=== PATIENT | male | born 1995 | race Caucasian/White ===

== ENCOUNTER 2021-06-11 13:38 | Inpatient (IN) | payer OTHER ==
[~2021-06-11] VITALS: Ht 185.4 cm; Wt 100.0 kg
[2021-06-11 14:56] LABS: COVID AG,FIA SOURCE NASOPHARYNGEAL
[2021-06-11] MEDS ORDERED: ONDANSETRON HCL 4 MG/2 ML VIAL IVP PRN (15:45)
[2021-06-11] MEDS ORDERED: ACETAMINOPHEN 325 MG TABLET PO PRN (15:45)
[2021-06-11] MEDS ORDERED: ALBUTEROL SULFATE/IPRATROPIUM 100-20 MCG/SPRAY 4 GM INHALER IH PRN (15:45)
[2021-06-11] MEDS ORDERED: DOCUSATE SODIUM 100 MG CAPSULE PO PRN (15:45)
[2021-06-11] MEDS ORDERED: BISACODYL 10 MG RECTAL RECTAL SUPPOSITORY PR PRN (15:45)
[2021-06-11] MEDS ORDERED: MAGNESIUM HYDROXIDE SUSPENSION 30 ML UDCUP PO PRN (15:45)
[2021-06-11] MEDS: HEPARIN SODIUM,PORCINE 5,000 UNITS/ML VIAL SQ SCH ×2 (16:00→23:44)
[2021-06-11 18:19] LABS: C-REACTIVE PROTEIN QUANT 1.76 mg/dL (0.00-0.30); FERRITIN 464 ng/mL (26-388)
[2021-06-11 20:18] VITALS: BP 142/90
[2021-06-11] MEDS: ZINC SULFATE 220 MG CAPSULE PO SCH (21:03)
[2021-06-11] MEDS: ASCORBIC ACID 500 MG TABLET PO SCH (21:03)
[2021-06-11] MEDS: FAMOTIDINE 10 MG/ML 2 ML VIAL IVP SCH (21:42)
[2021-06-11] MEDS: ACETAMINOPHEN 325 MG TABLET PO PRN (21:42)
[2021-06-11 23:41] VITALS: BP 145/79
[2021-06-12 01:41] LABS: APPEARANCE,URINE CLEAR (CLEAR); BILIRUBIN,URINE NEGATIVE (NEGATIVE); GLUCOSE, URINE (UA) NEGATIVE (NEGATIVE); KETONES,URINE 15 mg/dL (NEGATIVE); LEUKOCYTE ESTERASE ,URINE NEGATIVE (NEGATIVE); NITRATE,URINE NEGATIVE (NEGATIVE); OCCULT BLOOD,URINE NEGATIVE (NEGATIVE); PH,URINE 5.5 (5.0-8.0); PROTEIN,URINE POS 1+ (NEGATIVE)
[2021-06-12 02:01] LABS: BACTERIA,URINE Few /HPF (None Seen); MUCUS,URINE Few LPF (None Seen); RBC,URINE 0-2 /HPF (0-2); WBC,URINE 0-2 /HPF (0-5)
[2021-06-12 04:58] VITALS: BP 138/77
[2021-06-12] MEDS: ACETAMINOPHEN 325 MG TABLET PO PRN ×2 (04:58→21:32)
[2021-06-12 06:40] LABS: BASOPHILS % (AUTO) 0.3 % (0.0-2.0); EOSINOPHILS % (AUTO) 0 % (1.0-6.0); HEMATOCRIT 44.7 % (41-53); HEMOGLOBIN 15.3 g/dL (13.5-17.5); LYMPHOCYTES % (AUTO) 23.7 % (22.0-44.0); MEAN CORPUSCULAR HEMOGLOBIN 31.1 pg (26.0-34.0); MEAN CORPUSCULAR HGB CONC 34.2 G/dL (31.0-37.0); MEAN CORPUSCULAR VOLUME 91 fL (80-100); MONOCYTES # (AUTO) 0.4 K/uL (0.1-1.0); MONOCYTES % (AUTO) 10.4 % (2.0-9.0); NEUTROPHILS # (AUTO) 2.8 K/uL (1.8-7.7); NEUTROPHILS % (AUTO) 65.6 % (40.0-70.0); PLATELET COUNT (AUTO) 161 K/uL (150-450); RED BLOOD CELL COUNT(AUTO) 4.91 MIL/uL (4.50-5.90); RED CELL DISTRIBUTION WIDTH 12.9 % (11.5-14.5)
[2021-06-12 06:59] LABS: ALANINE AMINOTRANSFERASE 31 U/L (12-78); ALBUMIN 3.4 g/dL (3.4-5.0); ALKALINE PHOSPHATASE 49 U/L (46-116); ANION GAP 8 mmol/L (8-16); ASPARTATE AMINOTRANSFERASE 27 U/L (15-37); BILIRUBIN,TOTAL 0.3 mg/dL (0.1-1.0); CALCIUM, TOTAL 8.3 mg/dL (8.8-10.5); CARBON DIOXIDE 29 mmol/L (22-29); CHLORIDE 100 mmol/L (98-107); CREATININE 0.98 mg/dL (0.60-1.30); GLOMERULAR FILTR. RATE CALC > 60 mL/min (>60); GLUCOSE,RANDOM 92 mg/dL (70-110); POTASSIUM 4.3 mmol/L (3.5-5.1); SODIUM SERUM 137 mmol/L (136-145); UREA NITROGEN, BLOOD 12 mg/dL (7-18)
[2021-06-12 08:18] VITALS: BP 134/76
[2021-06-12] MEDS: HEPARIN SODIUM,PORCINE 5,000 UNITS/ML VIAL SQ SCH ×3 (08:52→23:58)
[2021-06-12] MEDS: ZINC SULFATE 220 MG CAPSULE PO SCH ×2 (08:52→21:31)
[2021-06-12] MEDS: FAMOTIDINE 10 MG/ML 2 ML VIAL IVP SCH ×2 (08:52→21:33)
[2021-06-12] MEDS: ASCORBIC ACID 500 MG TABLET PO SCH ×2 (08:53→21:31)
[2021-06-12] MEDS: SODIUM CHLORIDE 0.9% 1,000 ML IV SCH (13:06)
[2021-06-12 20:20] VITALS: BP 124/91
[2021-06-13 00:07] VITALS: BP 124/75
[2021-06-13] MEDS: SODIUM CHLORIDE 0.9% 1,000 ML IV SCH ×2 (03:13→17:24)
[2021-06-13 03:27] VITALS: BP 107/52
[2021-06-13] MEDS: ACETAMINOPHEN 325 MG TABLET PO PRN ×3 (03:29→21:56)
[2021-06-13 08:22] VITALS: BP 109/62
[2021-06-13] MEDS: FAMOTIDINE 10 MG/ML 2 ML VIAL IVP SCH ×2 (09:09→21:55)
[2021-06-13] MEDS: ASCORBIC ACID 500 MG TABLET PO SCH ×2 (09:10→21:55)
[2021-06-13] MEDS: ZINC SULFATE 220 MG CAPSULE PO SCH ×2 (09:10→21:56)
[2021-06-13] MEDS: HEPARIN SODIUM,PORCINE 5,000 UNITS/ML VIAL SQ SCH ×3 (09:10→23:57)
[2021-06-13 15:54] VITALS: BP 131/75
[2021-06-13 20:00] VITALS: BP 121/75
[2021-06-13] MEDS: BENZONATATE 100 MG CAPSULE PO PRN (21:56)
[2021-06-14 04:00] VITALS: BP 92/61
[2021-06-14] MEDS: BENZONATATE 100 MG CAPSULE PO PRN ×2 (04:33→22:54)
[2021-06-14] MEDS: SODIUM CHLORIDE 0.9% 1,000 ML IV SCH (04:33)
[2021-06-14] MEDS: ACETAMINOPHEN 325 MG TABLET PO PRN ×2 (04:38→22:54)
[2021-06-14 06:51] LABS: BASOPHILS % (AUTO) 0.5 % (0.0-2.0); EOSINOPHILS % (AUTO) 0 % (1.0-6.0); HEMATOCRIT 41.8 % (41-53); LYMPHOCYTES # (AUTO) 1.1 K/uL (1.0-4.8); LYMPHOCYTES % (AUTO) 30.4 % (22.0-44.0); MEAN CORPUSCULAR HEMOGLOBIN 30.5 pg (26.0-34.0); MEAN CORPUSCULAR HGB CONC 33.5 G/dL (31.0-37.0); MEAN CORPUSCULAR VOLUME 91 fL (80-100); MONOCYTES # (AUTO) 0.3 K/uL (0.1-1.0); NEUTROPHILS # (AUTO) 2.3 K/uL (1.8-7.7); NEUTROPHILS % (AUTO) 61.1 % (40.0-70.0); PLATELET COUNT (AUTO) 161 K/uL (150-450); RED BLOOD CELL COUNT(AUTO) 4.59 MIL/uL (4.50-5.90); RED CELL DISTRIBUTION WIDTH 12.9 % (11.5-14.5)
[2021-06-14 07:06] LABS: ANION GAP 10 mmol/L (8-16); CALCIUM, TOTAL 7.7 mg/dL (8.8-10.5); CARBON DIOXIDE 22 mmol/L (22-29); CHLORIDE 105 mmol/L (98-107); CREATININE 0.71 mg/dL (0.60-1.30); GLOMERULAR FILTR. RATE CALC > 60 mL/min (>60); GLUCOSE,RANDOM 88 mg/dL (70-110); POTASSIUM 3.8 mmol/L (3.5-5.1); SODIUM SERUM 137 mmol/L (136-145); UREA NITROGEN, BLOOD 6 mg/dL (7-18)
[2021-06-14 08:22] VITALS: BP 119/48
[2021-06-14] MEDS: ASCORBIC ACID 500 MG TABLET PO SCH ×2 (09:15→22:54)
[2021-06-14] MEDS: FAMOTIDINE 10 MG/ML 2 ML VIAL IVP SCH ×2 (09:16→22:53)
[2021-06-14] MEDS: ZINC SULFATE 220 MG CAPSULE PO SCH ×2 (09:16→22:53)
[2021-06-14] MEDS: HEPARIN SODIUM,PORCINE 5,000 UNITS/ML VIAL SQ SCH ×4 (09:16→23:07)
[2021-06-14 19:20] VITALS: BP 123/53
[2021-06-15 04:49] VITALS: BP 119/70
[2021-06-15] MEDS: BENZONATATE 100 MG CAPSULE PO PRN ×2 (05:47→21:43)
[2021-06-15 06:51] LABS: EOSINOPHILS % (AUTO) 0.2 % (1.0-6.0); HEMATOCRIT 42.6 % (41-53); HEMOGLOBIN 14.4 g/dL (13.5-17.5); LYMPHOCYTES # (AUTO) 1.2 K/uL (1.0-4.8); LYMPHOCYTES % (AUTO) 23.4 % (22.0-44.0); MEAN CORPUSCULAR HEMOGLOBIN 30.7 pg (26.0-34.0); MEAN CORPUSCULAR HGB CONC 33.7 G/dL (31.0-37.0); MEAN CORPUSCULAR VOLUME 91 fL (80-100); MONOCYTES # (AUTO) 0.4 K/uL (0.1-1.0); MONOCYTES % (AUTO) 7.8 % (2.0-9.0); NEUTROPHILS # (AUTO) 3.6 K/uL (1.8-7.7); NEUTROPHILS % (AUTO) 68.6 % (40.0-70.0); PLATELET COUNT (AUTO) 190 K/uL (150-450); RED BLOOD CELL COUNT(AUTO) 4.68 MIL/uL (4.50-5.90); RED CELL DISTRIBUTION WIDTH 12.7 % (11.5-14.5)
[2021-06-15 07:01] LABS: ALANINE AMINOTRANSFERASE 40 U/L (12-78); ALBUMIN 2.6 g/dL (3.4-5.0); ALKALINE PHOSPHATASE 42 U/L (46-116); ANION GAP 10 mmol/L (8-16); ASPARTATE AMINOTRANSFERASE 42 U/L (15-37); BILIRUBIN,TOTAL 0.3 mg/dL (0.1-1.0); CARBON DIOXIDE 23 mmol/L (22-29); CHLORIDE 104 mmol/L (98-107); CREATININE 0.72 mg/dL (0.60-1.30); GLOMERULAR FILTR. RATE CALC > 60 mL/min (>60); GLUCOSE,RANDOM 89 mg/dL (70-110); POTASSIUM 3.6 mmol/L (3.5-5.1); SODIUM SERUM 137 mmol/L (136-145); TOTAL PROTEIN, SERUM 6.4 g/dL (6.4-8.2); UREA NITROGEN, BLOOD 7 mg/dL (7-18)
[2021-06-15 07:29] VITALS: BP 134/55
[2021-06-15] MEDS: ACETAMINOPHEN 325 MG TABLET PO PRN (09:18)
[2021-06-15] MEDS: HEPARIN SODIUM,PORCINE 5,000 UNITS/ML VIAL SQ SCH ×3 (09:19→23:38)
[2021-06-15] MEDS: ZINC SULFATE 220 MG CAPSULE PO SCH ×2 (09:19→20:50)
[2021-06-15] MEDS: ASCORBIC ACID 500 MG TABLET PO SCH ×2 (09:19→20:50)
[2021-06-15] MEDS: FAMOTIDINE 10 MG/ML 2 ML VIAL IVP SCH ×2 (09:19→20:50)
[2021-06-15 20:20] VITALS: BP 124/60
[2021-06-16 04:00] VITALS: BP 126/69
[2021-06-16 08:08] VITALS: BP 109/67
[2021-06-16] MEDS ORDERED: MULTIVITAMINS WITH MINERALS, THERAPEUTIC TABLET PO SCH (09:00)
[2021-06-16] MEDS: ZINC SULFATE 220 MG CAPSULE PO SCH (09:21)
[2021-06-16] MEDS: HEPARIN SODIUM,PORCINE 5,000 UNITS/ML VIAL SQ SCH (09:21)
[2021-06-16] MEDS: FAMOTIDINE 10 MG/ML 2 ML VIAL IVP SCH (09:21)
[2021-06-16] MEDS: ASCORBIC ACID 500 MG TABLET PO SCH (09:21)
[2021-06-16] MEDS: BENZONATATE 100 MG CAPSULE PO PRN (09:21)
[2021-06-16] MEDS ORDERED: ZINC220C14 PO (13:23)
[2021-06-16] MEDS ORDERED: MULT-248 PO (13:23)
[2021-06-16] MEDS ORDERED: ACET-2247 PO (13:25)
== END 2021-06-16 13:45 | DRG 177 ==
LOC: EMS 13:41 → 6S 16:28
PROVIDERS: ADMIT Internal Medicine; ATTEND Internal Medicine
DX: U07.1 COVID-19 (principal); R65.11 Systemic inflammatory response syndrome (SIRS) of non-infectious origin with acute organ dysfunction; J98.8 Other specified respiratory disorders; Z87.891 Personal history of nicotine dependence
CPT/HCPCS: 71046; 80048; 80053; 81001; 82728; 84145; 85025; 85379; 85651; 86140; 87040; 99285; J1644; J3490; J7030; 36415-L1; 36415-TC